=== PATIENT | male | born 1940 | race Caucasian/White ===

== ENCOUNTER 2017-03-12 02:01 | Emergency (ER) | payer MEDICARE, OTHER | END 2017-03-12 03:06 | disposition home or self-care (01) | LOC: ER 02:01 | DX: N20.0 Calculus of kidney (principal); C61 Malignant neoplasm of prostate; Z87.442 Personal history of urinary calculi; Z90.49 Acquired absence of other specified parts of digestive tract; Z79.82 Long term (current) use of aspirin; Z79.899 Other long term (current) drug therapy ==